=== PATIENT | female | born 1995 | race Caucasian/White ===

== ENCOUNTER 2020-05-22 12:10 | Outpatient (RCR) | payer OTHER, SELFPAY ==
[2020-05-08 13:10] VITALS: BP 128/79; PULSE 98
[2020-05-13 15:01] VITALS: BP 128/83; PULSE 90
[2020-05-22 12:50] VITALS: BP 123/77; PULSE 95
== END 2020-05-27 07:42 | disposition home or self-care (01) ==
LOC: ANHOBOP 12:10
PROVIDERS: Visit Provider Student in an Organized Health Care Education/Training Program
DX: O36.5930 Maternal care for other known or suspected poor fetal growth, third trimester, not applicable or unspecified (principal); Z3A.36 36 weeks gestation of pregnancy; Z3A.37 37 weeks gestation of pregnancy; Z3A.38 38 weeks gestation of pregnancy
CPT/HCPCS: 59025

== ENCOUNTER 2020-05-26 | Inpatient (IN) | payer OTHER, SELFPAY ==
[2020-05-26] VITALS (90 sets, daily range): BP systolic 83–138; BP diastolic 28–95; PULSE 77–155; RESP 16–20; TEMP 36.4–37.2; O2SAT 85–100; BMI 26.7
--- NOTE | 2020-05-26 00:44 | LDADM ---
This patient, Beti Oseguera, was admitted to Labor/Delivery/Recovery 107 on 05/26/20 at 00:00. Plans for labor, pain management and were discussed with patient. Patient/family oriented to hospital policies and general routines including ID bracelet, bed and alarms, visiting hours, pain management, procedures, bathroom and other care routines, personal items, smoking policy, room service/diet and guest tray routines, infant security routines, and visiting hours. Patient/Family are encouraged to report perceived risks to care and to ask questions if they do not understand what they are told or what they should do. See OBIX for further documentation.
[2020-05-26 01:18] LABS: Basophils Percent Auto 0.3 % (0.2-1.2); Eosinophils Absolute Auto 0.3 K/mm3 (0-0.3); Eosinophils Percent Auto 2.7 % (0-4.4); Hemoglobin 12.4 g/dL (12.0-15.0); Immature Granulocyte Absolute 0.11 K/mm3 (0.00-0.031); Immature Granulocyte Percent A 0.9 % (0-0.5); Mean Corpuscular HGB Conc 33.5 g/dl (32-36); Mean Corpuscular Hemoglobin 31.6 pg (26-34); Mean Corpuscular Volume 94.4 fl (80-100); Mean Platelet Volume 10.4 fl (7.4-10.4); Monocytes Absolute Auto 0.8 K/mm3 (0.1-0.6); Monocytes Percent Auto 6.6 % (2.6-8.5); Neutrophils Absolute Auto 8.4 K/mm3 (1.3-6.7); Neutrophils Percent Auto 66.5 % (45.5-73.1); Platelet Count Result 237 k/mm3 (150-375); Red Blood Count 3.92 M/mm3 (4.2-5.4); Red Cell Distribution Width 13.8 % (11.5-14.5); White Blood Count 12.6 K/mm3 (4.5-10.0)
[2020-05-26] MEDS: miSOPROStol 25 MCG TABLET VAGINAL ×2 (01:24→05:22)
[2020-05-26] MEDS: LACTATED RINGERS 1,000 ML 125 ML IV CONT ×3 (06:46→10:18)
--- NOTE | 2020-05-26 07:43 | PM.IMHP ---
H&P: HPI History of Present Illness Date/Time: 05/26/20 07:43 Chief Complaint: IOL for IUGR Narrative: Beti Oseguera is a 24 year old female at 39w0d here for IOL for IUGR. Fetus was noted to have an EFW of 8.5% on 05/08/20. She received twice weekly testing and repeat growth scans. All testing was reassuring. Repeat growth scans showed a persistently low EFW. S/D ratios remained wnl. The remainder of her has been uncomplicated. Review of Systems Cardiovascular: Cardiovascular: Denies chest pain, Denies leg edema, Denies palpitations, Denies dyspnea and Denies dyspnea on exertion Respiratory: Respiratory: Denies cough, Denies dyspnea and Denies dyspnea on exertion Gastrointestinal: Gastrointestinal: Denies abdominal pain, Denies constipation, Denies diarrhea, Denies nausea and Denies vomiting Genitourinary: Genitourinary: Denies hematuria, Denies urinary frequency, Denies dysuria, Denies pelvic pain, Denies urinary incontinence and Denies vaginal discharge Neurologic: Reports system reviewed and no additional complaints, except as documented Psychiatric: Psychiatric: Reports no additional psychiatric complaints Endocrine: Endocrine: Denies palpitations [facility] Family History Family History (Updated 05/08/20 @ 12:50 by Ty Callaway RN) Other No pertinent family history Social History Social History Smoking status: Never smoker Substance use: never Gender identity (if verbalized by the patient): Female Spiritual care concerns: No Meds Home Medications and Allergies Home Medications Medication Instructions Recorded Confirmed Type PNV cmb#95-ferrous fumarate-FA 1 tablet PO DAILY 05/08/20 05/08/20 History [] ferrous sulfate [Iron (ferrous 325 mg PO BID 05/08/20 05/08/20 History sulfate)] Allergies Allergy/AdvReac Type Severity Reaction Status Date / Time latex Allergy Rash Verified 05/08/20 14:44 shellfish derived Allergy Rash Verified 05/08/20 14:45 tree nut Allergy Anaphylaxis Verified 05/08/20 14:45 Vital Signs Vital Signs - 24 hr 05/26/20 00:32 05/26/20 01:00 05/26/20 01:43 Temperature 36.8 C Pulse Rate 90 96 Blood Pressure 129/87 132/91 H 05/26/20 02:04 05/26/20 03:00 05/26/20 04:00 Temperature Pulse Rate 94 88 84 Blood Pressure 129/75 127/80 115/78 05/26/20 05:00 05/26/20 06:00 05/26/20 06:07 Temperature 37.0 C Pulse Rate 80 82 Blood Pressure 112/67 129/90 05/26/20 07:00 Temperature Pulse Rate 88 Blood Pressure 119/79 Exam Const: General: no acute distress Eyes: EOM: EOMs intact bilaterally Neck: Neck: supple Thyroid: thyroid normal Chest: Breast/axilla inspection: normal inspection of the breasts Breast/axilla palpation: normal palpation of the breasts, normal palpation of the axillae and no axillary lymphadenopathy Resp: Effort & Inspection: normal respiratory effort Auscultation: clear to auscultation bilaterally Cardio: Rate: regular rate Rhythm: regular rhythm GI: Inspection: non-distended GI Palp: Yes Soft to palpation, No Tenderness to palpation present (GI) and No Guarding due to palpation present (GI) Auscultation: normal bowel sounds : General: No bladder normal to palpation External Female Exam: normal external appearance Speculum Exam - Vagina: normal vaginal discharge and No vaginal bleeding Speculum Exam - Cervix: nontender Bimanual exam- vagina & uterus: No bladder normal to palpation and No Cervical tenderness present OB/external & speculum: No vaginal bleeding Skin: General skin exam: normal color and no rashes or lesions noted Neuro: Cognition (Neuro): normal cognition Speech: normal speech Extrem: General: normal to inspection and no edema Psych: Mental Status: mental status grossly normal Affect: normal affect H&P: Results Labs Labs: Short CBC 05/26/20 Range/Units 00:30 WBC 12.6 H (4.5-10.0) K/mm3 Hgb 12.4 (12.0-15.0) g/dL Hct
[2020-05-26 09:12] LABS: Rapid Plasma Reagin Non-Reactive (NonReactive)
--- NOTE | 2020-05-26 09:37 | PM.OBPNLAB ---
Pain Control Date/time seen: 05/26/20 09:37 Pain control: tolerating well Pelvic Exam Dilation (cm): 4 Effacement (%): 60 station: -3 Amniotic membrane status: Intact Comments: AROM for clear fluid Contractions Monitor mode: External Contraction pattern: Regular Status status: Category l Comments: FHT were noted to have a prolonged decel earlier. FHT were corrected with maternal positioning. FHT have no2 returned to category 1 Assessment and Plan Assessment: induction ongoing Plan: continuous present management Comments: AROM and IUPC placed. Pt job regularly. Will assess adequacy and augment with pitocin if necessary
[2020-05-26] MEDS: TERBUTALINE SULFATE 1 MG/ML VIAL (12:36)
[2020-05-26] MEDS: OXYTOCIN 30 UNITS/NS 500 ML 30 UNITS/500 ML BAG 999 UNITS IV CONT (13:00)
--- NOTE | 2020-05-26 13:05 | PM.OBPRVD ---
OB - Delivery Note Procedure Procedure: Patient pushed for a spontaneous vaginal delivery. The fetus was delivered atraumatically and placed on the maternal abdomen. The cord was clamped and cut after 1 minute of life. The cord was double clamped and cut and a segment of cord was collected for cord gases. Cord blood was collected for blood type and Coomb's testing. The placenta delivered spontaneously and was noted to be intact. The perineum was inspected and there was a 1st degree perineal laceration. The laceration was repaired with 3-0 vicryl in the usual fashion. The uterus was firm and good hemostasis was noted. The patient and fetus were stable in the delivery room. Intrapartal events: None Induction method: per misoprostol protocol Delivery augmentation: rupture of membranes Delivery monitor: external FHT Route of delivery: Episiotomy description: None Laceration Description: Perineal - 1st Degree Delivery repair: vicryl Specimen: No Quantitative Blood Loss (ml): 250 Disposition: floor () Complications: No immediate complications [place] Baby Date of : 05/26/20 Time of : 12:54 Weeks of gestation at delivery: 39 Infant gender: Male Weight (pounds): 6 Weight (ounces): 7 presentation: vertex position: Right Occiput Anterior Placenta delivery description: Spontaneous cord vessel description: 3 Vessels score one minute: 8 score five minutes: 9
[2020-05-26] MEDS: OXYTOCIN 30 UNITS/NS 500 ML 30 UNITS/500 ML BAG 125 UNITS IV CONT (13:20)
[2020-05-26] MEDS: WITCH HAZEL 40 PADS 1 PAD TOPICAL (15:11)
[2020-05-26] MEDS: BENZOCAINE 20% AER SPR (*SP) 56 GM CAN 1 SPRAY TOPICAL (15:11)
--- NOTE | 2020-05-26 15:26 | PC.NURSE ---
Patient transferred to post room #292 per wheelchair from labor and delivery. Support person present. Oriented to unit, room, information board, rooming in, admission packet and security measures. Patient verbalizes understanding.
[2020-05-26] MEDS: IBUPROFEN 600 MG TABLET PO (22:03)
[2020-05-27 05:19] LABS: Hematocrit 33.1 % (37.0-47.0); Hemoglobin 11.1 g/dL (12.0-15.0)
--- NOTE | 2020-05-27 07:51 | PM.OBDSVD ---
DS: Admitting Diagnosis Admitting Diagnosis Admitting Diagnosis: Inductin of labor for IUGR OB - DS: Summary OB Procedures : None OB Procedures Intrapartum: Spontaneous Vag Delivery OB Procedures: : None Status at Discharge Functional status at discharge: independent ambulation Overall status at discharge: patient is back to baseline Time Spent with Patient Time attestation: Total time spent providing and/or coordinating discharge services: Time spent: Less than 30 minutes Exam Const: General: comfortable and no acute distress Resp: Effort & Inspection: normal respiratory effort Auscultation: clear to auscultation bilaterally Cardio: Rate: regular rate GI: GI Palp: Yes Soft to palpation Auscultation: normal bowel sounds Other: Fundus firm below umbilicus Psych: Appearance: grossly normal Mental Status: mental status grossly normal Affect: normal affect DS: Data Data Completed and Pending Labs on day of discharge: Labs from last 24 hours 05/27/20 05/26/20 04:08 00:30 Hgb 11.1 L Hct 33.1 L RPR Non-reactive Discharge Plan Discharge Discharging Clinician: Yasmany Nixon Patient Disposition: Home, Self-Care Activity: as tolerated and pelvic rest Diet: regular Discharge Instructions: call or return for temperature >100.4, bleeding >2 pads/hr for 2 hrs, pain not controlled with medications, signs/symptoms of mastitis Patient Instructions: Antibiotic Form, Vaginal Delivery (DC) Stand Alone Forms: General Discharge Information Follow-up/Referrals: Yasmany Nixon MD [Physician] - 4 Weeks Discharge Medications: New acetaminophen [Mapap (acetaminophen)] 325 mg Tablet 650 mg PO Q6H PRN (Reason: Mild Pain (1-3) Or Headache) Qty: 30 RF: 0 ibuprofen 600 mg Tablet 600 mg PO Q6H PRN (Reason: Cramping) Qty: 30 RF: 0 Uoe-W-Nggfla Cream 1 applic topical PRN PRN (Reason: Sore Nipples) Qty: 28 RF: 0 Continued ferrous sulfate [Iron (ferrous sulfate)] 325 mg (65 mg iron) Tablet 325 mg PO BID RF: 0 PNV cmb#95-ferrous fumarate-FA [] 28 mg iron- 800 mcg Tablet 1 tablet PO DAILY RF: 0 Date of admission: 05/26/20 00:00 Primary Care Provider: PHYSICIAN,[facility] [employer] [employer] Admitting Provider: Yasmany Nixon Attending physician on admission: Yasmany Nixon Condition: Stable
[2020-05-27 08:00] VITALS: BP 113/88; PULSE 94; RESP 16; RESP 18; TEMP 36.4; O2SAT 100
[2020-05-27] MEDS: BENZOCAINE 20% AER SPR (*SP) 56 GM CAN 1 SPRAY TOPICAL (08:34)
[2020-05-27] MEDS: IBUPROFEN 600 MG TABLET PO ×2 (08:34→18:02)
[2020-05-27] MEDS: WITCH HAZEL 40 PADS 1 PAD TOPICAL (08:34)
[2020-05-27] MEDS: MULTIVIT/MIN/PREN/FOL AC/IRON TABLET 1 TAB PO (08:35)
[2020-05-27] MEDS: DOCUSATE SODIUM 100 MG CAPSULE PO ×2 (08:35→18:01)
--- NOTE | 2020-05-27 09:40 | WPDANLDPN2 ---
Anes-Prog Note L&D Date/Time: 05/27/20 09:40 Comfortable throughout: labor and delivery Neuraxial method: epidural Epidural/Spinal procedure site: clean & non-tender Neuro status: Neuro function grossly intact. Cardiovascular status: normal Respiratory status: normal Airway patency: baseline Mental status: baseline Post-Op hydration status: normal Vital Signs: Last Vital Signs Temp 36.4 C 05/26/20 20:00 Pulse 91 05/26/20 20:00 Resp 16 05/26/20 20:00 BP 129/82 05/26/20 20:00 Pulse Ox 100 05/26/20 20:00 Pain score (VAS): 0 I/O: Intake & Output 05/26/20 05/27/20 05/27/20 23:59 07:59 15:59 Intake Total 500 Balance 500 Post-procedural complaints: none Patient feedback: Patient satisfied with anesthetic care.
--- NOTE | 2020-05-27 11:33 | PC.NURSE ---
Patient viewed the discharge video Mother & Baby Care, The First Two Weeks . Patient was given the opportunity and encouraged to ask questions. Patient verbalized understanding of information shared and has been given the mother/baby guide for home reference.
--- NOTE | 2020-05-27 17:08 | PC.NURSE ---
Self care and infant care discharge instructions given including follow up visit date and time. Pt. verbalized understanding. No questions or concerns verbalized. Very pleasant and cooperative. at side.
[2020-05-27] MEDS: LANOLIN (LANSINOH) 7.5 GM CREAM 1 APPLIC TOPICAL (18:01)
[2020-05-28 10:42] VITALS: BP 124/81; PULSE 94; RESP 20; TEMP 37.1; O2SAT 100
== END 2020-05-27 18:29 | disposition home or self-care (01) | DRG 807 ==
LOC: ANHLDR → ANHOB2 15:31
PROVIDERS: Admitting Provider Student in an Organized Health Care Education/Training Program; Visit Provider Student in an Organized Health Care Education/Training Program
DX: O36.5930 Maternal care for other known or suspected poor fetal growth, third trimester, not applicable or unspecified (principal); Z37.0 Single live birth; Z3A.39 39 weeks gestation of pregnancy; O36.8330 Maternal care for abnormalities of the fetal heart rate or rhythm, third trimester, not applicable or unspecified; O70.0 First degree perineal laceration during delivery
CPT/HCPCS: 36415; 85014; 85018; 85025; 86592; 86850; 86900; 86901; A9270; J2590; J2795; J3105; J7120